=== PATIENT | female | born 1985 | race African-American/Black ===

== ENCOUNTER 2024-08-15 16:51 | Emergency (ER) | payer OTHER, SELFPAY ==
[2024-08-15 17:50] LABS: Specific Gravity < 1.005 (1.005-1.030); Sqamous Epithelial None Seen /HPF (None Seen); Urine Bacteria None Seen /HPF (<20); Urine Bilirubin NEGATIVE (Negative); Urine Blood Negative (Negative); Urine Clarity Clear (Clear); Urine Color Colorless (Yellow); Urine Crystals Unidentified Few /HPF (None Seen); Urine Culture Reflex Order NOT NEEDED; Urine Glucose NEGATIVE (Negative); Urine Ketones TRACE (Negative); Urine Microscopic Reflex YN ORDER UMIC; Urine Nitrite NEGATIVE (Negative); Urine Protein NEGATIVE (Negative); Urine RBC <5 /HPF (None Seen); Urine Urobilinogen Normal (Normal); Urine WBC <5 /HPF (<5)
[2024-08-15 17:52] LABS: Specific Gravity < 1.005 (1.005-1.030)
[2024-08-15 17:59] LABS: Absolute Basophils 0.1 K/uL (0-0.5); Absolute Eosinophils 0.1 K/uL (0-0.5); Absolute Lymphocytes (CBC) 2.4 K/uL (0.7-4.9); Absolute Monocytes 0.3 K/uL (0.1-1.3); Absolute Neutrophil 2.3 K/uL (1.8-8.0); Basophils % 1.3 % (0-1.3); Eosinophils % 1.1 % (0-4.4); Hematocrit 35.3 % (36.0-45.0); Hemoglobin 11.3 g/dL (12.0-15.0); Lymphocytes % 47.1 % (15.3-44.8); MCH 23.1 pg (27.0-35.0); MCHC 32.2 g/dL (32.0-36.0); MCV 71.9 fL (80-100); MPV 8.4 fL (7.6-11.3); Monocytes % 6.5 % (3.3-12.3); Nucleated Red Blood Cells % 0.1 % (0-0); Platelets 201 thou/uL (152-406); RBC Red Blood Cell Count 4.91 M/uL (3.86-4.86); Red Cell Distribution Width 17.6 % (12.1-15.2)
--- NOTE | 2024-08-15 18:09 | RAD REPORT ---
Procedure: Chest Single View HISTORY: Chest pain COMPARISON: none FINDINGS: The lungs appear clear of acute infiltrate. No significant pleural effusion noted. The heart is normal size. IMPRESSION: No acute abnormality is displayed.
[2024-08-15 18:24] LABS: ALT/SGPT 17 U/L (13-56); AST/SGOT 16 U/L (15-37); Albumin 4.2 g/dL (3.4-5.0); Alkaline Phosphatase 98 U/L (45-117); Anion Gap 10.6 mEq/L (5.0-15.0); BUN Blood Urea Nitrogen 4 mg/dL (7-18); Bicarbonate 24 mEq/L (21-32); Bilirubin Total 0.3 mg/dL (0.2-1.0); Globulin 4.3 g/dL (2.3-3.5); Glomerular Filtration Rate 90 ml/min (=/>90); Glucose Level 87 mg/dL (74-106); Magnesium 2.1 mg/dL (1.6-2.4); NT PRO-BNP 18 pg/mL (<125); Potassium 3.6 mEq/L (3.5-5.1); Protein, Total 8.5 g/dL (6.4-8.2); Sodium Level 136 mEq/L (136-145)
[2024-08-15 18:28] LABS: Bilirubin Direct < 0.2 mg/dL (0-0.2); Bilirubin Indirect, Calculated 0.1 mg/dL (0.2-0.8)
[2024-08-15 18:29] LABS: Troponin High Sensitivity < 3.0 pg/mL (<58.9)
--- NOTE | 2024-08-15 18:53 | EDPHYS ---
Physician Documentation [facility] Name: Stacey Reese Age: 38 yrs Sex: Female : 1985 Arrival Date: 08/15/2024 Time: 16:51 Bed 7 Private MD: ED Physician Yannick Connor HPI: 08/15 17:45 This 38 yrs old Black Female presents to ER via Ambulatory with complaints of FATIGUE. rn 17:45 Patient reports generalized fatigue, low energy, malaise since yesterday. Today had rn about 2 minutes of sharp left-sided chest pain that was nonradiating. No fever or chills. Does not feel ill. No cough. Just finished her last menstrual period and denies heavy bleeding. No history of anemia. Has history of hypothyroidism but compliant with medication and no medication changes recently. Denies illness. No vomiting or diarrhea.. Onset: The symptoms/episode began/occurred yesterday. Severity of symptoms: At their worst the symptoms were mild in the emergency department the symptoms have improved. The patient has not experienced similar symptoms in the past. The patient has not recently seen a physician. Historical: - Allergies: 17:00 No Known Allergies; ph - PMHx: 17:00 Hypothyroidism; ph - PSHx: 17:00 None; ph - Immunization history:: Adult Immunizations unknown. - Infectious Disease History:: Denies. - Social history:: Smoking status: Patient denies any tobacco usage or history of. - Family history:: not pertinent. - Hospitalizations: : No recent hospitalization is reported. ROS: 17:45 Constitutional: Negative for fever, chills, and weight loss, Neck: Negative for injury, rn pain, and swelling, Cardiovascular: Negative for palpitations, and edema, Respiratory: Negative for shortness of breath, cough, wheezing, and pleuritic chest pain, Abdomen/GI: Negative for abdominal pain, nausea, vomiting, diarrhea, and constipation, MS/Extremity: Negative for injury and deformity, Skin: Negative for injury, rash, and discoloration, Neuro: Negative for headache, numbness, tingling, and seizure, Exam: 17:45 Constitutional: This is a well developed, well nourished patient who is awake, alert, rn and in no acute distress. Ambulatory to room without assistance or difficulty Head/Face: Normocephalic, atraumatic. Cardiovascular: Bradycardic, regular. Respiratory: Speaking full sentences, unlabored. Abdomen/GI: Soft, non-tender MS/ Extremity: Pulses equal, no cyanosis. Neuro: Awake and alert, GCS 15 17:59 ECG was reviewed by the Attending Physician. rn Vital Signs: 16:56 BP 126 / 76; Pulse 57; Resp 18; Temp 97.5; Pulse Ox 98% on R/A; Weight 112.94 kg; ph Height 5 ft. 3 in. ; 19:01 BP 107 / 89; Pulse 56; Resp 13; Pulse Ox 100% ; bp 16:56 Body Mass Index 44.11 (112.94 kg, 160.02 cm) ph MDM: 16:59 Medical Screening Exam initiated rn 18:51 Differential Diagnosis Malaise, electrolyte disorder, dehydration, UTI, , rn thyroid abnormality. Data reviewed: vital signs, nurses notes, lab test result(s), EKG, radiologic studies, plain films, and as a result, I will discharge patient. Counseling: I had a detailed discussion with the patient and/or guardian regarding the historical points, exam findings, and any diagnostic results supporting the discharge/admit diagnosis, lab results, radiology results, the need for outpatient follow up, to return to the emergency department if symptoms worsen or persist or if there are any questions or concerns that arise at home. Special discussion: I discussed with the patient/guardian in detail that at this point there is no indication for admission to the hospital. It is understood, however, that if the symptoms persist or worsen the patient needs to return immediately for re-evaluation. 18:51 ED course: No acute findings and workup. 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 I have personally reviewed all of the results, including but not limited to blood tests and imaging deemed necessary to safely discharge this patient at this time. All results given to and printed out for patient. I personally went over all the results with the patient and answered all questions. Patient will follow-up with PCP and or specialist as discussed. Return precautions given and understood.. 08/15 17:09 Order name: Basic Metabolic Panel; Complete Time: 18:36 rn 08/15 17:09 Order name: CBC with Diff; Complete Time: 18:36 rn 08/15 17:09 Order name: D-Dimer; Complete Time: 18:17 rn 08/15 17:09 Order name: LFT's; Complete Time: 18:36 rn 08/15 17:09 Order name: Magnesium; Complete Time: 18:36 rn 08/15 17:09 Order name: NT PRO-BNP; Complete Time: 18:36 rn 08/15 17:09 Order name: Troponin HS; Complete Time: 18:36 rn 08/15 17:09 Order name: Test, Urine; Complete Time: 18:06 rn 08/15 17:09 Order name: UA Rfx Gil[place] Cult if indicated; Complete Time: 18:06 rn 08/15 17:09 Order name: TSH; Complete Time: 18:36 rn 08/15 17:09 Order name: T4 Free; Complete Time: 18:36 rn 08/15 17:09 Order name: XRAY Chest (1 view); Complete Time: 18:17 rn 08/15 17:09 Order name: EKG; Complete Time: 17: rn 08/15 17:09 Order name: Cardiac monitoring; Complete Time: 17:19 rn 08/15 17:09 Order name: EKG - Nurse/Tech; Complete Time: 17:19 rn 08/15 17:09 Order name: IV Saline Lock; Complete Time: 17:48 rn 08/15 17:09 Order name: Labs collected and sent; Complete Time: 17:48 rn 08/15 17:09 Order name: O2 Per Protocol; Complete Time: 17:25 rn 08/15 17:09 Order name: O2 Sat Monitoring; Complete Time: 17:25 rn EC:59 Rate is 56 beats/min. Rhythm is regular. QRS [place] is Normal. [place] interval is normal. QRS rn interval is normal. QT interval is normal. No Q waves. T waves are Normal. No ST changes noted. Clinical impression: NSR w/ Non-specific ST/T Changes. Interpreted by me. Reviewed by me. Administered Medications: No medications were administered Disposition Summary: 08/15/24 18:52 Discharge Ordered Notes: Location: Home rn Problem: new rn Symptoms: have improved rn Condition: Stable rn Diagnosis - Other malaise and fatigue rn - Chest pain, unspecified rn Followup: rn - With: Private Physician - When: As needed - Reason: Recheck today's complaints, Re-evaluation by your physician Discharge Instructions: - Discharge Summary Sheet rn - Nonspecific Chest Pain, Adult rn Forms: - Medication Reconciliation Form rn - Antibiotic ornamental plaster sticker - Prescription Opioid Use rn - Patient Portal Instructions rn - Leadership Thank You Letter rn Signatures: Dispatcher [employer] Yannick Bowden MD MD rn Hall, Patricia, RN RN ph
--- NOTE | 2024-08-15 18:53 | ER ---
Nurse's Notes [facility] Name: Stacey Reese Age: 38 yrs Sex: Female : 1985 Arrival Date: 08/15/2024 Time: 16:51 Bed 7 Private MD: Diagnosis: Other malaise and fatigue;Chest pain, unspecified Presentation: 08/15 16:56 Chief complaint: Patient states: Dizziness, fatigue and chest pain that started ph yesterday. Coronavirus screen: Vaccine status: Patient reports being unvaccinated. Ebola Screen: No symptoms or risks identified at this time. Initial Sepsis Screen: Does the patient meet any 2 criteria? No. Patient's initial sepsis screen is negative. Does the patient have a suspected source of infection? No. Patient's initial sepsis screen is negative. Risk Assessment: Do you want to hurt yourself or someone else? Patient reports no desire to harm self or others. Onset of symptoms was August 15, 2024. 16:56 Method Of Arrival: Ambulatory 16:56 Acuity: NAHUM 3 ph Historical: - Allergies: 17:00 No Known Allergies; ph - PMHx: 17:00 Hypothyroidism; ph - PSHx: 17:00 None; ph - Immunization history:: Adult Immunizations unknown. - Infectious Disease History:: Denies. - Social history:: Smoking status: Patient denies any tobacco usage or history of. - Family history:: not pertinent. - Hospitalizations: : No recent hospitalization is reported. Screenin:10 [facility] ED Fall Risk Assessment (Adult) History of falling in the last 3 months, aa5 including since admission No falls in past 3 months (0 pts) Confusion or Disorientation No (0 pts) Intoxicated or Sedated No (0 pts) Impaired Gait No (0 pts) Mobility Assist Device Used No (0 pt) Altered Elimination No (0 pt) Score/Fall Risk Level 0 - 2 = Low Risk Oriented to surroundings, Maintained a safe environment, Educated pt \T\ family on fall prevention, incl call for assistance when getting out of bed, Assessed \T\ reinforced patient's understanding of fall precautions. Abuse screen: Denies threats or abuse. Nutritional screening: No deficits noted. Tuberculosis screening: No symptoms or risk factors identified. Assessment: 17:10 General: Appears comfortable, Behavior is calm, cooperative. Pain: Complains of pain in aa5 chest. Neuro: Level of Consciousness is awake, alert, obeys commands, Oriented to person, place, time, situation, Reports dizziness, fatigue . Cardiovascular: Heart tones S1 S2 present Rhythm is sinus bradycardia. Respiratory: Airway is patent Respiratory effort is even, unlabored, Respiratory pattern is regular, symmetrical. GI: No signs and/or symptoms were reported involving the gastrointestinal system. : No signs and/or symptoms were reported regarding the genitourinary system. EENT: No signs and/or symptoms were reported regarding the EENT system. Derm: Skin is dry, Skin is normal, Skin temperature is warm. Musculoskeletal: Range of motion: intact in all extremities. Vital Signs: 16:56 BP 126 / 76; Pulse 57; Resp 18; Temp 97.5; Pulse Ox 98% on R/A; Weight 112.94 kg; ph Height 5 ft. 3 in. ; 19:01 BP 107 / 89; Pulse 56; Resp 13; Pulse Ox 100% ; bp 16:56 Body Mass Index 44.11 (112.94 kg, 160.02 cm) ph ED Course: 16:53 Patient arrived in ED. ph 16:59 Yannick Connor MD is Attending Physician. rn 17:00 Triage completed. ph 17:01 Arm band placed on Patient placed in an exam room. ph 17:09 Estela Graham, RN is Primary Nurse. aa5 17:10 Patient has correct armband on for positive identification. Bed in low position. Call aa5 light in reach. Side rails up X 1. Client placed on continuous cardiac and pulse oximetry monitoring. NIBP monitoring applied. residential monitor on. Pulse ox on. NIBP on. 17:19 EKG done, by ED staff, reviewed by Yannick Connor MD. ph 17:49 Initial lab(s) drawn, by ak, sent to lab. Urine collected: clean catch specimen, clear. bp Inserted saline lock: 22 gauge in right antecubital area, using aseptic technique. Blood collected. Flushed with 10 mL NS. 17:57 No provider procedures requiring assistance completed. aa5 18:05 XRAY Chest (1 view) In Process Unspecified. EDMS 19:01 IV discontinued, intact, bleeding controlled, No redness/swelling at site. Pressure bp dressing applied. Administered Medications: No medications were administered Medication: 17:56 VIS not applicable for this client. aa5 Outcome: 18:52 Discharge ordered by . rn 19:01 Discharged to home ambulatory, bp 19:01 Condition: stable 19:01 Discharge instructions given to patient, Instructed on discharge instructions, follow up and referral plans. Demonstrated understanding of instructions, follow-up care, 19:02 Patient left the ED. bp Signatures: Dispatcher [employer] EDMS Yannick Connor MD MD rn Calderon, Audri, RN RN aa Rocio Santos RN RN Sonido Hauser, RN RN bp
[2024-08-15 19:07] VITALS: TEMP 97.5
[2024-08-15 19:09] VITALS: BP 107/89; O2SAT 100
--- NOTE | 2024-08-17 12:01 | EKG ---
Test Date: 2024-08-15 Test Time: 17:14:39 Chief Engineer: PH MEASUREMENT RESULTS: Intervals: Rate: 56 IL: 132 QRSD: 92 QT: 410 QTc: 395 [place]: P: 7 IL: 132 QRS: 29 T: 15 INTERPRETIVE STATEMENTS: Sinus bradycardia Otherwise normal ECG Compared to ECG 01/31/2007 17:41:41 Sinus arrhythmia no longer present Electronically Signed On 08-17-24 11:57:13 CDT by Milo Carcamo
== END 2024-08-15 19:02 | disposition home or self-care (01) ==
LOC: ER 16:51
DX: R07.9 Chest pain, unspecified (principal); R53.81 Other malaise; R53.83 Other fatigue
CPT/HCPCS: 36415; 71045; 80048; 80076; 81001; 81025; 83735; 83880; 84439; 84443; 84484; 85025; 85379; 93005; 99284